=== PATIENT | female | born 1965 ===

== ENCOUNTER 2024-02-18 10:25 | Day surgery (SDC) | payer BC ==
[2024-02-18] MEDS: Lactated Ringers 1,000 ML IV SCH (10:50)
[2024-02-18] MEDS ORDERED: Propofol 200 MG/20 ML SDV ONE (11:31)
[2024-02-18] MEDS ORDERED: Water For Injection, Sterile 20 ML ONE (11:32)
[2024-02-18] MEDS ORDERED: dexmedeTOMIDine HCl 200 MCG/2 ML SDV ONE (11:32)
[2024-02-18] MEDS ORDERED: Bupivacaine 0.5%/EPINEPHrine 1:200,000 30 ML SDV ONE (11:33)
[2024-02-18] MEDS ORDERED: Bupivacaine 0.25% 10 ML SDV ONE (11:33)
[2024-02-18] MEDS ORDERED: EPINEPHrine 1 MG/1 ML Amp ONE (11:34)
[2024-02-18] MEDS ORDERED: fentaNYL 100 MCG/2 ML SDV ONE (11:37)
[2024-02-18] MEDS ORDERED: ceFAZolin 2 GM in Sodium Chloride 0.9% 50 ML IV ONE (12:00)
[2024-02-18] MEDS ORDERED: ceFAZolin 2 GM Vial ONE (12:42)
[2024-02-18] MEDS ORDERED: Ondansetron 4 MG/2 ML SDV ONE (12:42)
[2024-02-18] MEDS ORDERED: Dexamethasone 4 MG/ML 5 ML MDV ONE (12:42)
[2024-02-18] MEDS ORDERED: Ketamine HCL/NACL, ISO-OSM 50 MG/5 ML Syringe ONE (12:44)
[2024-02-18] MEDS ORDERED: Glycopyrrolate 0.2 MG/ML SDV ONE (13:08)
[2024-02-18] MEDS ORDERED: Ketorolac 30 MG/ML SDV ONE (13:18)
[2024-02-18] MEDS ORDERED: HYDROmorphone 1 MG/ML Syringe ONE (13:48)
[2024-02-18] MEDS: HYDROmorphone 1 MG/ML Syringe IVPUSH ONE (13:50)
== END 2024-02-18 14:45 | disposition home or self-care (01) ==
LOC: MW.SDS 10:25
PROVIDERS: ATTEND Orthopaedic Surgery
DX: S83.241A Other tear of medial meniscus, current injury, right knee, initial encounter (principal); J45.909 Unspecified asthma, uncomplicated; I10 Essential (primary) hypertension; E78.00 Pure hypercholesterolemia, unspecified; E11.9 Type 2 diabetes mellitus without complications; K21.9 Gastro-esophageal reflux disease without esophagitis; Z79.84 Long term (current) use of oral hypoglycemic drugs; Z79.899 Other long term (current) drug therapy; X58.XXXA Exposure to other specified factors, initial encounter
CPT/HCPCS: 29881; 82947; J0131; J0690; J1100; J1170; J1885; J2405; J2704; J3010; J3490; J7120; J0171